=== PATIENT | female | born 1970 | race Caucasian/White ===

== ENCOUNTER 2017-11-10 17:57 | Emergency (ER) | payer MEDICAID ==
[~2017-11-10] VITALS: Ht 160 cm; Wt 105.0 kg
[~2017-11-10 17:57] MED LIST: AMLO2.5T2 PO; BIOT25008 PO; MULT1TAB74 PO; PANT-47 PO; VITA1TAB20 PO
[2017-11-10 18:18] LABS: BASOPHILS # (AUTO) 0.1 X10'3 (0-0.2); BASOPHILS % (AUTO) 0.8 % (0-1); EOSINOPHILS # (AUTO) 0.3 X10'3 (0-0.9); EOSINOPHILS % (AUTO) 3.4 % (0-6); HEMATOCRIT 47.6 % (35.0-45.0); HEMOGLOBIN 15.9 g/dl (12.0-16.0); LYMPHOCYTES % (AUTO) 38.2 % (21-51); MEAN CORPUSCULAR HEMOGLOBIN 28.6 PG (27.0-31.0); MEAN CORPUSCULAR HGB CONC 33.3 % (33.0-36.5); MEAN CORPUSCULAR VOLUME 85.9 FL (78-98); MEAN PLATELET VOLUME 8.8 FL (7.4-10.4); MONOCYTES # (AUTO) 0.6 X10'3 (0-0.9); MONOCYTES % (AUTO) 7.4 % (2-12); NEUTROPHILS # (AUTO) 3.9 X10'3 (1.8-7.7); NEUTROPHILS % (AUTO) 50.2 % (42-75); PLATELET COUNT 334 X10'3 (140-440); RED BLOOD COUNT 5.54 X10'6 (4.20-5.60); RED CELL DISTRIBUTION WIDTH 14.9 % (11.5-14.5); WHITE BLOOD COUNT 7.9 X10'3 (4.5-11.0)
[2017-11-10 18:26] LABS: PARTIAL THROMBOPLASTIN TIME 25 SECONDS (22-32); PROTHROMBIN TIME 10.7 SECONDS (9.0-12.0)
[2017-11-10 18:32] LABS: ALANINE AMINOTRANSFERASE 80 U/L (12-78); ALBUMIN 3.8 G/DL (3.4-5.0); ALBUMIN/GLOBULIN RATIO 0.8 (1.1-1.5); ALKALINE PHOSPHATASE 101 IU/L (46-116); ANION GAP 8 (8-16); ASPARTATE AMINO TRANSFERASE 58 U/L (10-37); BILIRUBIN,TOTAL 0.5 MG/DL (0.1-1.0); BLOOD UREA NITROGEN 16 MG/DL (7-18); BUN/CREATININE RATIO 15.4 (6.6-38.0); CALCIUM 8.5 MG/DL (8.5-10.1); CHLORIDE 101 MMOL/L (99-107); CREATININE 1.04 MG/DL (0.40-0.90); GLUCOSE 126 MG/DL (70-104); POTASSIUM 3.2 MMOL/L (3.5-5.1); SODIUM 137 MMOL/L (135-145); TOTAL CARBON DIOXIDE 28.2 MMOL/L (24-32); TOTAL PROTEIN 8.5 G/DL (6.4-8.2); eGFR 56 ML/MIN
[2017-11-10] MEDS ORDERED: sucralfate 1gm/10ml UD suspension PO ONE (20:25)
[2017-11-10] MEDS ORDERED: mag hydrox/Alum hydrox/simeth 30ml oral suspension PO ONE (20:25)
[2017-11-10] MEDS ORDERED: LIDOcaine Viscous 15ml cup MM PRN (20:25)
[2017-11-10] MEDS ORDERED: OMEP20CA10 PO (21:57)
[2017-11-10] MEDS ORDERED: FAMO20TA44 PO (21:57)
[2017-11-10 22:22] VITALS: BP 148/101
== END 2017-11-10 22:23 | disposition home or self-care (01) ==
LOC: ER 17:57
DX: I10 Essential (primary) hypertension (principal); Z98.84 Bariatric surgery status; Z98.890 Other specified postprocedural states; Z79.899 Other long term (current) drug therapy
CPT/HCPCS: 36415; 71045; 80053; 84484; 85025; 85610; 85730; 93005; 99285

== ENCOUNTER 2023-09-03 18:05 | Inpatient (IN) | payer BC, MEDICAID ==
[~2023-09-03] VITALS: Ht 162.6 cm; Wt 105.3 kg
[~2023-09-03 18:05] MED LIST changes: -AMLO2.5T2 PO; -BIOT25008 PO; +FAMO20TA44 PO; -MULT1TAB74 PO; +OMEP20CA15 PO; -PANT-47 PO; -VITA1TAB20 PO
[2023-09-03 18:13] VITALS: TEMP 99.1
[2023-09-03 18:37] LABS: BASOPHILS # (AUTO) 0.1 X10'3 (0-0.2); BASOPHILS % (AUTO) 0.8 % (0-1); EOSINOPHILS # (AUTO) 0.1 X10'3 (0-0.9); EOSINOPHILS % (AUTO) 0.8 % (0-6); HEMATOCRIT 48.4 % (35.0-45.0); HEMOGLOBIN 16.2 g/dl (12.0-16.0); LYMPHOCYTES # (AUTO) 1.5 X10'3 (1.1-4.8); LYMPHOCYTES % (AUTO) 16.4 % (21-51); MEAN CORPUSCULAR HEMOGLOBIN 29.3 PG (27.0-31.0); MEAN CORPUSCULAR HGB CONC 33.5 g/dL (33.0-36.5); MEAN CORPUSCULAR VOLUME 87.5 FL (78-98); MEAN PLATELET VOLUME 8.6 FL (7.4-10.4); MONOCYTES # (AUTO) 0.5 X10'3 (0-0.9); MONOCYTES % (AUTO) 6.1 % (2-12); NEUTROPHILS # (AUTO) 6.7 X10'3 (1.8-7.7); NEUTROPHILS % (AUTO) 75.9 % (42-75); PLATELET COUNT 341 X10'3 (140-440); RED BLOOD COUNT 5.54 X10'6 (4.20-5.60); RED CELL DISTRIBUTION WIDTH 15.1 % (11.5-14.5); WHITE BLOOD COUNT 8.9 X10'3 (4.5-11.0)
[2023-09-03 18:49] LABS: ALANINE AMINOTRANSFERASE 39 U/L (12-78); ALBUMIN 3.2 G/DL (3.4-5.0); ALBUMIN/GLOBULIN RATIO 0.7 (1.1-1.5); ALKALINE PHOSPHATASE 114 IU/L (46-116); ANION GAP 15 (8-16); ASPARTATE AMINO TRANSFERASE 31 U/L (10-37); BILIRUBIN,TOTAL 0.5 MG/DL (0.1-1.0); BLOOD UREA NITROGEN 13 MG/DL (7-18); BUN/CREATININE RATIO 11.6 (10.0-20.0); CALCIUM 9.1 MG/DL (8.5-10.1); CHLORIDE 104 MMOL/L (99-107); CREATININE 1.12 MG/DL (0.40-0.90); GLUCOSE 141 MG/DL (70-104); POTASSIUM 3.6 MMOL/L (3.5-5.1); SODIUM 141 MMOL/L (135-145); TOTAL CARBON DIOXIDE 22.3 MMOL/L (24-32); eCRCL 49 ML/MIN; eGFR 51 ML/MIN
[2023-09-03 18:56] LABS: PRO BRAIN NATRIURETIC PEPTIDE 130 PG/ML (0-125)
[2023-09-03] MEDS: aspirin 81mg tab.chew PO ONE (22:54)
[2023-09-03] MEDS: nitroGLYCERIN 0.4mg/hour patch TD ONE (23:07)
[2023-09-04] MEDS ORDERED: mag hydrox/Alum hydrox/simeth 30ml oral suspension PO PRN (00:15)
[2023-09-04] MEDS ORDERED: magnesium hydroxide 30ml (MOM) UD suspension PO PRN (00:15)
[2023-09-04] MEDS ORDERED: regadenoson 0.4mg/5ml syringe IV PRN (00:15)
[2023-09-04] MEDS ORDERED: aminophylline 250mg/10ml inj. IV PRN (00:15)
[2023-09-04] MEDS ORDERED: acetaminophen 325mg tablet PO PRN (00:15)
[2023-09-04] MEDS ORDERED: potassium Cl 40MEQ/1/2NS 520ml 520 ML IV PRN (00:15)
[2023-09-04] MEDS ORDERED: nitroGLYCERIN 0.4mg SUBLingual tab SL PRN (00:15)
[2023-09-04] MEDS ORDERED: metoprolol tartrate 1mg/ml inj IV PRN (00:15)
[2023-09-04] MEDS ORDERED: magnesium 4gm in 100ml NS 100 ML IV PRN (00:15)
[2023-09-04] MEDS ORDERED: magnesium Cl slow-release 64mg tablet PO PRN (00:15)
[2023-09-04] MEDS ORDERED: ondansetron/PF 4mg/2ml inj IV PRN (00:15)
[2023-09-04] MEDS ORDERED: potassium Cl 20 mEq SR tablet PO PRN ×2 (00:15)
[2023-09-04 01:36] LABS: CHOL/HDL RATIO 3.1 (0.00-4.99); CHOLESTEROL 192 MG/DL (0-200); HDL CHOLESTEROL 61 MG/DL (35-60); HEMOGLOBIN A1C 5.5 % (4.5-6.2); LDL CHOLESTEROL 111 MG/DL (50-100); PRO BRAIN NATRIURETIC PEPTIDE 95 PG/ML (0-125); THYROID STIMULATING HORMONE 3.19 ulU/ml (0.34-4.50); TRIGLYCERIDES 70 MG/DL (20-135)
[2023-09-04] MEDS: pantoprazole 40mg Tablet.DR PO SCH (01:38)
[2023-09-04] MEDS: lisinopril 5mg tablet PO ONE (01:38)
[2023-09-04 02:30] VITALS: O2SAT 95
[2023-09-04 02:45] VITALS: BP 120/79; PULSE 78; RESP 10
[2023-09-04] MEDS ORDERED: non-formulary drug (Omeprazole 2 CAP) PO SCH (07:00)
[2023-09-04] MEDS ORDERED: famotidine 20mg tablet PO SCH (07:00)
== END 2023-09-04 03:30 | disposition left against medical advice (07) | DRG 311 ==
LOC: ER 18:06 → ED HOLD 09-04 00:17
PROVIDERS: ADMIT Surgery Surgical Critical Care; ATTEND Surgery Surgical Critical Care
DX: I24.9 Acute ischemic heart disease, unspecified (principal); I10 Essential (primary) hypertension; K21.9 Gastro-esophageal reflux disease without esophagitis; E03.9 Hypothyroidism, unspecified; F32.A Depression, unspecified; Z53.29 Procedure and treatment not carried out because of patient's decision for other reasons; E78.5 Hyperlipidemia, unspecified; R07.89 Other chest pain
CPT/HCPCS: 36415; 71045; 80053; 80061; 83036; 83880; 84443; 84484; 85025; 93005; 99285; G0378